=== PATIENT | male | born 1970 | race Caucasian/White ===

== ENCOUNTER 2016-08-23 20:56 | Emergency (ER) | payer OTHER ==
[~2016-08-23] VITALS: Ht 165.1 cm; Wt 68.0 kg
== END 2016-08-23 21:26 | disposition home or self-care (01) ==
LOC: ED 20:56
DX: S63.286A Dislocation of proximal interphalangeal joint of right little finger, initial encounter (principal); F17.200 Nicotine dependence, unspecified, uncomplicated; X58.XXXA Exposure to other specified factors, initial encounter; Y93.61 Activity, american tackle football; Y92.89 Other specified places as the place of occurrence of the external cause; Y99.8 Other external cause status

== ENCOUNTER 2022-01-15 10:01 | Emergency (ER) | payer SELFPAY ==
[2022-01-15] MEDS ORDERED: AMOXICILLIN500 M2 PO (10:40)
[2022-01-15] MEDS ORDERED: IMODIUM A-D2 M2 PO (10:40)
== END 2022-01-15 10:51 | disposition home or self-care (01) ==
LOC: ED 10:01
DX: R19.7 Diarrhea, unspecified (principal); K08.89 Other specified disorders of teeth and supporting structures; F17.200 Nicotine dependence, unspecified, uncomplicated